=== PATIENT | female | born 1970 | race Caucasian/White ===

== ENCOUNTER 2019-09-27 12:55 | Outpatient (CLI) | payer OTHER ==
[~2019-09-27 12:55] MED LIST: PERIOGARD473 ML MM; TOPROL XL25 MG PO
== END 2019-09-27 13:30 | disposition home or self-care (01) ==
LOC: NUCLEAR 12:55
DX: I50.9 Heart failure, unspecified (principal)
CPT/HCPCS: 78472; 78496; A9560

== ENCOUNTER 2023-02-20 07:07 | Outpatient (CLI) | payer OTHER | END 2023-02-20 07:08 | disposition home or self-care (01) | LOC: NUCLEAR 07:07 | PROVIDERS: ATTEND Internal Medicine Cardiovascular Disease | DX: I25.10 Atherosclerotic heart disease of native coronary artery without angina pectoris (principal) | CPT/HCPCS: 78452; 93017; A9500 ==

== ENCOUNTER 2023-02-20 07:58 | Outpatient (CLI) | payer OTHER | END 2023-02-20 07:59 | disposition home or self-care (01) | LOC: LAB 07:58 | PROVIDERS: ATTEND Internal Medicine | DX: U07.1 COVID-19 (principal); B34.1 Enterovirus infection, unspecified ==

== ENCOUNTER 2023-07-08 10:46 | Outpatient (CLI) | payer OTHER | END 2023-07-08 10:56 | disposition home or self-care (01) | LOC: MAMO-SONO 10:46 | PROVIDERS: ATTEND Obstetrics & Gynecology Maternal & Fetal Medicine | DX: Z12.31 Encounter for screening mammogram for malignant neoplasm of breast (principal); N60.11 Diffuse cystic mastopathy of right breast; N60.12 Diffuse cystic mastopathy of left breast ==